=== PATIENT | male | born 1995 | race Caucasian/White ===

== ENCOUNTER 2017-02-05 00:06 | Emergency (ER) | payer SELFPAY ==
[~2017-02-05] VITALS: Ht 182.8 cm; Wt 81.6 kg
[2017-02-05 00:13] VITALS: BP 126/66
[2017-02-05] MEDS ORDERED: Motrin,Rufen800 MG PO (01:22)
== END 2017-02-05 02:54 | disposition home or self-care (01) ==
LOC: ED 00:06
DX: M23.91 Unspecified internal derangement of right knee (principal)

== ENCOUNTER 2017-04-12 14:21 | Emergency (ER) | payer SELFPAY ==
[~2017-04-12] VITALS: Ht 182.8 cm; Wt 81.6 kg
[~2017-04-12 14:21] MED LIST: Motrin,Rufen800 MG PO
[2017-04-12 14:38] VITALS: BP 123/64
== END 2017-04-12 14:52 | disposition home or self-care (01) ==
LOC: ED 14:21
DX: Z20.2 Contact with and (suspected) exposure to infections with a predominantly sexual mode of transmission (principal); R03.0 Elevated blood-pressure reading, without diagnosis of hypertension; F17.200 Nicotine dependence, unspecified, uncomplicated

== ENCOUNTER 2020-04-01 15:21 | Emergency (ER) | payer OTHER, BC ==
[~2020-04-01] VITALS: Ht 182.8 cm; Wt 86.2 kg
[2020-04-01 15:28] VITALS: BP 133/74
[2020-04-01] MEDS ORDERED: NAPROXEN250 MG PO (15:58)
[2020-04-01] MEDS ORDERED: CYCLOBENZAPRINE10 MG PO (15:58)
[2020-04-01] MEDS ORDERED: TYLENOL325 M1 PO (15:58)
== END 2020-04-01 16:11 | disposition home or self-care (01) ==
LOC: ED 15:21
DX: S49.92XA Unspecified injury of left shoulder and upper arm, initial encounter (principal); F17.200 Nicotine dependence, unspecified, uncomplicated; V89.2XXA Person injured in unspecified motor-vehicle accident, traffic, initial encounter; Y93.I9 Activity, other involving external motion; Y92.488 Other paved roadways as the place of occurrence of the external cause; Y99.8 Other external cause status

== ENCOUNTER 2020-04-04 16:35 | Emergency (ER) | payer OTHER, BC ==
[~2020-04-04] VITALS: Ht 182.8 cm; Wt 86.2 kg
[~2020-04-04 16:35] MED LIST changes: +CYCLOBENZAPRINE10 MG PO; +NAPROXEN250 MG PO; +TYLENOL325 M1 PO
[2020-04-04 16:41] VITALS: BP 141/70
[2020-04-05] MEDS ORDERED: NAPROSYN500 MG PO (06:22)
== END 2020-04-04 17:55 | disposition left against medical advice (07) ==
LOC: ED 16:35
DX: M25.512 Pain in left shoulder (principal); Z53.21 Procedure and treatment not carried out due to patient leaving prior to being seen by health care provider

== ENCOUNTER 2020-04-05 06:02 | Emergency (ER) | payer OTHER, BC ==
[~2020-04-05] VITALS: Ht 195.5 cm; Wt 74.8 kg
[2020-04-05 06:11] VITALS: BP 130/67
[2020-04-05] MEDS ORDERED: NAPROSYN500 MG PO (06:22)
== END 2020-04-05 06:35 | disposition home or self-care (01) ==
LOC: ED 06:02
DX: M25.512 Pain in left shoulder (principal); Z79.899 Other long term (current) drug therapy; V89.2XXA Person injured in unspecified motor-vehicle accident, traffic, initial encounter; Y93.89 Activity, other specified; Y92.488 Other paved roadways as the place of occurrence of the external cause; Y99.8 Other external cause status

== ENCOUNTER 2020-11-08 12:34 | Emergency (ER) | payer BC ==
[~2020-11-08] VITALS: Wt 90.7 kg
[~2020-11-08 12:34] MED LIST changes: +NAPROSYN500 MG PO
[2020-11-08 12:38] VITALS: BP 126/63
== END 2020-11-08 18:37 | disposition home or self-care (01) ==
LOC: ED 12:34
DX: S20.212A Contusion of left front wall of thorax, initial encounter (principal); V29.9XXA Motorcycle rider (driver) (passenger) injured in unspecified traffic accident, initial encounter; Y93.89 Activity, other specified; Y92.89 Other specified places as the place of occurrence of the external cause; Y99.8 Other external cause status

== ENCOUNTER → 2022-06-11 | Outpatient (CLI) | payer BC | END | disposition home or self-care (01) | LOC: ORTHO 00:34 | PROVIDERS: ATTEND Orthopaedic Surgery | DX: M25.512 Pain in left shoulder (principal) ==

== ENCOUNTER 2022-08-07 18:36 | Emergency (ER) | payer BC ==
[~2022-08-07] VITALS: Wt 95.3 kg
[2022-08-07 18:44] VITALS: BP 127/66
== END 2022-08-07 20:56 | disposition home or self-care (01) ==
LOC: ED 18:36
DX: S20.212A Contusion of left front wall of thorax, initial encounter (principal); X58.XXXA Exposure to other specified factors, initial encounter; Y93.89 Activity, other specified; Y92.89 Other specified places as the place of occurrence of the external cause; Y99.8 Other external cause status

== ENCOUNTER 2023-04-25 23:29 | Emergency (ER) | payer BC ==
[~2023-04-25] VITALS: Ht 185.4 cm; Wt 99.8 kg
[2023-04-25 23:46] VITALS: BP 135/67
[2023-04-25] MEDS ORDERED: SODIUM CHLORIDE 0.9% 1,000 ML IV ONE (23:55)
[2023-04-26 00:11] LABS: MEAN CELL VOLUME 81.7 fl (80.0-94.0); MEAN CORPUSCULAR HGB 27.2 pg (27.0-31.0); MEAN CORPUSCULAR HGB CONC 33.3 g/dl (33.0-37.0); MEAN PLATELET VOLUME 9.4 fl (9.6-12.3); PLATELET COUNT AUTOMATED 336 10*3/uL (130-400); RED BLOOD COUNT 5.63 10*6/uL (4.50-5.90); RED CELL DISTRI WIDTH 12.4 % (0-14.5); WHITE BLOOD COUNT 18.1 10*3/uL (4.8-10.8)
[2023-04-26 00:12] LABS: MANUAL DIFF REFLEX YES
[2023-04-26 00:30] LABS: BUN 12 mg/dl (9-23); CHLORIDE 103 mmol/L (98-107); POTASSIUM 3.9 mmol/L (3.4-5.1)
[2023-04-26 00:31] LABS: PLATELET SUFFICIENCY NORMAL (NORMAL); TOTAL CELLS COUNTED 100 #CELLS
[2023-04-26] MEDS ORDERED: IOHEXOL 300 MG/ML 100 ML VIAL IV ONE (02:05)
== END 2023-04-26 03:18 | disposition home or self-care (01) ==
LOC: ED 23:29
PROVIDERS: Internal Medicine
DX: K52.9 Noninfective gastroenteritis and colitis, unspecified (principal); Z20.822 Contact with and (suspected) exposure to COVID-19; E86.0 Dehydration; R11.2 Nausea with vomiting, unspecified; J45.909 Unspecified asthma, uncomplicated; Z87.891 Personal history of nicotine dependence

== ENCOUNTER 2023-08-15 19:01 | Emergency (ER) | payer BC ==
[~2023-08-15] VITALS: Ht 185.4 cm; Wt 99.8 kg
[2023-08-15 19:44] LABS: BASO # 0.1 10*3/uL (0.0-0.1); BASO % 0.8 % (0.0-1.0); EOS # 0.3 10*3/uL (0.0-0.4); HEMATOCRIT 40.2 % (42.0-52.0); LYMPH # 1.6 10*3/uL (1.3-4.4); LYMPH % 24.7 % (27.0-41.0); MEAN CELL VOLUME 81.2 fl (80.0-94.0); MEAN CORPUSCULAR HGB 28.1 pg (27.0-31.0); MEAN CORPUSCULAR HGB CONC 34.6 g/dl (33.0-37.0); MONO # 1.1 10*3/uL (0.1-1.0); MONO % 16.6 % (3.0-9.0); NEUT # 3.5 10*3/uL (2.3-7.9); NEUT % 52.6 % (47.0-73.0); PLATELET COUNT AUTOMATED 205 10*3/uL (130-400); RED BLOOD COUNT 4.95 10*6/uL (4.50-5.90); RED CELL DISTRI WIDTH 12.1 % (0-14.5); WHITE BLOOD COUNT 6.6 10*3/uL (4.8-10.8)
[2023-08-15 20:09] LABS: BUN 11 mg/dl (9-23); CHLORIDE 104 mmol/L (98-107); POTASSIUM 3.5 mmol/L (3.4-5.1)
[2023-08-15] MEDS ORDERED: HEPARIN SODIUM 250 ML IV SCH (20:15)
[2023-08-15] MEDS ORDERED: ASPIRIN 325 MG TAB PO ONE (20:15)
[2023-08-15] MEDS ORDERED: TICAGRELOR 90 MG TABLET PO ONE (20:40)
[2023-08-15 20:49] VITALS: BP 129/77
== END 2023-08-15 21:18 | disposition short-term general hospital (02) ==
LOC: ED 19:01
PROVIDERS: Internal Medicine
DX: I21.3 ST elevation (STEMI) myocardial infarction of unspecified site (principal); R53.1 Weakness; R20.0 Anesthesia of skin

== ENCOUNTER → 2023-09-16 | Outpatient (CLI) | payer BC | END | disposition home or self-care (01) | LOC: CARD 08:30 | PROVIDERS: ATTEND Internal Medicine | DX: I34.0 Nonrheumatic mitral (valve) insufficiency (principal); R06.02 Shortness of breath ==

== ENCOUNTER 2024-01-13 22:18 | Emergency (ER) | payer BC ==
[~2024-01-13] VITALS: Ht 1711 cm; Wt 99.8 kg
[2024-01-13 22:23] VITALS: BP 148/76
[2024-01-13] MEDS ORDERED: ZITHROMAX250 MG PO (23:15)
[2024-01-13] MEDS ORDERED: PREDNISONE20 M1 PO (23:15)
[2024-01-13] MEDS ORDERED: methylPREDNISolone sod succ 125 MG VIAL IM ONE (23:20)
== END 2024-01-13 23:24 | disposition home or self-care (01) ==
LOC: ED 22:18
DX: J20.8 Acute bronchitis due to other specified organisms (principal); J45.909 Unspecified asthma, uncomplicated